=== PATIENT | male | born 1950 | race Caucasian/White ===

== ENCOUNTER → 2019-05-15 | Outpatient (REF) | payer MEDICARE ==
[2019-05-15 14:12] LABS: BASO # 0.1 10^3/uL (0.0-0.2); EOS # 0.9 10^3/uL (0.0-0.5); EOS % 10.6 % (0.0-3.0); HEMATOCRIT 34.3 % (42.0-52.0); HEMOGLOBIN 10.9 g/dl (13.5-17.5); LYMPH # 1.8 10^3/uL (1.5-5.0); LYMPH % 21.6 % (24.0-44.0); MEAN CORPUSCULAR HEMOGLOBIN 28.5 pg (27.0-33.0); MEAN CORPUSCULAR HGB CONC 31.8 g/dl (32.0-36.5); MEAN CORPUSCULAR VOLUME 89.6 fl (80.0-96.0); MONO # 0.9 10^3/uL (0.0-0.8); MONO % 10.4 % (0.0-5.0); NEUTROPHILS # 4.7 10^3/uL (1.5-8.5); NEUTROPHILS % 55.9 % (36.0-66.0); PLATELET COUNT, AUTOMATED 273 10^3/uL (150-450); RED BLOOD COUNT 3.83 10^6/uL (4.30-6.10); WHITE BLOOD COUNT 8.4 10^3/uL (4.0-10.0)
[2019-05-15 14:43] LABS: ERYTHROCYTE SEDIMENTATION RATE 85 mm/hr (0-20)
== END ==
LOC: M SFHCPLAZ 13:28
PROVIDERS: ATTEND Internal Medicine Infectious Disease
DX: I05.8 Other rheumatic mitral valve diseases (principal)
CPT/HCPCS: 36415; 85025; 85652; 86140; G0463

== ENCOUNTER → 2019-06-03 | Outpatient (CLI) | payer MEDICARE ==
[~2019-06-03] MED LIST: PROHANCE 279.3MG/ML 15ML VIAL (A9576) As Ordered ONE; PROHANCE 279.3MG/ML 5ML VIAL (A9576) As Ordered ONE
--- NOTE | 2019-06-03 17:23 | REP ---
INDICATION: Streptococcal infection. PROCEDURE: MR lumbar spine with and without contrast. COMPARISON STUDIES: No prior similar studies. FINDINGS: There is [id number] multilevel degenerative disc disease loss of disc height and disc desiccation seen diffusely throughout the lumbar spine. Degenerative change appears greater L4-5 level. There is degenerative disc disease at L4-5 and L5 S1 levels. On the sagittal T2-weighted images, ehbw-wt-pesdceby canal stenosis is seen at the levels of the disc at L3-4, L4-5 and to a lesser extent at L5-S1 levels. Conus ends normally at L1 level. On review of axial images, At L1-2 disc bulge with lrwq-uo-zlfgqfnm canal narrowing and mild bilateral foraminal narrowing At L2-3 disc bulge with mild canal narrowing and mild bilateral foraminal narrowing At L3-4 disc bulge with rnst-xu-zuoonmyd canal stenosis and darc-ix-ojcstjij bilateral foraminal narrowing At L4-5 global disc bulge with moderate canal stenosis and moderate bilateral foraminal narrowing At L5-S1 global disc bulge with moderate canal stenosis. Bilateral lateral recess narrowing and ijtueyou-th-vpdbab foraminal narrowing on the left and moderate on the right. With concern for infection, no definite epidural abscess or collection. However at the inferior L5 level on the right there is questionable soft tissue extension around the vertebral body and extension of the inflammation seen at the L4-5 disc level. Though this could represent degenerative change, early infection must be considered. Follow-up recommended. There is inflammation around the right facet joint into L4-5 level. IMPRESSION: 1. Degenerative changes as described. 2. No definite findings of osteomyelitis or diskitis, no evidence of epidural abscess or collection. 3. No limiting canal stenosis. Foraminal narrowing appears significant at L4-5 on the right and L5-S1 on the left. 4. No definite findings of osteomyelitis, diskitis, or epidural abscess. There is focal inflammation at the L4-5 level on the right at the endplates and extending into the right facet joint. A septic facet joint at L4-5 on the right may be considered. At the inferior L5 level on the right there is questionable soft tissue extension around the vertebral body and extension of the inflammation seen at the L4-5 disc level. Though this could represent degenerative inflammation, early infection should be considered. Follow-up recommended. Electronically Signed by Lewis Mckeon MD 06/03/2019 05:14 P
== END ==
LOC: M RAD 14:32
PROVIDERS: ATTEND Internal Medicine Infectious Disease
DX: A49.1 Streptococcal infection, unspecified site (principal); M51.36 Other intervertebral disc degeneration, lumbar region
CPT/HCPCS: 72158; 87071; A9576

== ENCOUNTER → 2019-06-09 | Outpatient (REF) | payer MEDICARE ==
[2019-06-09 16:24] LABS: BASO # 0.1 10^3/uL (0.0-0.2); BASO % 1.3 % (0.0-1.0); EOS # 0.4 10^3/uL (0.0-0.5); EOS % 6.1 % (0.0-3.0); HEMATOCRIT 39.9 % (42.0-52.0); HEMOGLOBIN 12.4 g/dl (13.5-17.5); LYMPH # 2.5 10^3/uL (1.5-5.0); LYMPH % 34.5 % (24.0-44.0); MEAN CORPUSCULAR HGB CONC 31.1 g/dl (32.0-36.5); MEAN CORPUSCULAR VOLUME 90.1 fl (80.0-96.0); MONO # 0.6 10^3/uL (0.0-0.8); MONO % 8.1 % (0.0-5.0); NEUTROPHILS # 3.6 10^3/uL (1.5-8.5); NEUTROPHILS % 49.3 % (36.0-66.0); PLATELET COUNT, AUTOMATED 289 10^3/uL (150-450); RED BLOOD COUNT 4.43 10^6/uL (4.30-6.10); WHITE BLOOD COUNT 7.2 10^3/uL (4.0-10.0)
[2019-06-09 16:50] LABS: ERYTHROCYTE SEDIMENTATION RATE 41 mm/hr (0-20)
== END ==
LOC: M SFHCPLAZ 12:47
PROVIDERS: ATTEND Internal Medicine Infectious Disease
DX: I05.8 Other rheumatic mitral valve diseases (principal)
CPT/HCPCS: 36415; 85025; 85652; 86140; G0463

== ENCOUNTER 2023-12-06 10:01 | Day surgery (SDC) | payer MEDICARE ==
[~2023-12-06] VITALS: Ht 182.9 cm; Wt 109.8 kg
[~2023-12-06 10:01] MED LIST changes: +ATROPINE SULFATE 1% OPHTH SOLN 2ML BTL OS SCH; +BREO1INH3; +CARV3.12; +CLOB0.0526; +CYCL-707; +DOXY100C3; +FINA5TAB2; +FLUO-365; +FLUT1BLS8; +FURO40TA2; +LAMO100T3; +LIDOCAINE 3.5 % 1ML OPHTH TOPICAL GEL OU ONE; +LORAPOW30; +OFLOXACIN 0.3 % (OCUFLOX) OPTH SOL 5ML OS ONE; +PANT40TA29; +PHENYLEPHRINE 10% OPHTH SOL 5ML OS PRN; +PHENYLEPHRINE 2.5% OPHTH SOL 2ML OS SCH; -PROHANCE 279.3MG/ML 15ML VIAL (A9576) As Ordered ONE; -PROHANCE 279.3MG/ML 5ML VIAL (A9576) As Ordered ONE; +ROSU5TAB40; +TAMS1CAP17; +TRAZ-252; +TROPICAMIDE 1% OPHTH SOLN 15ML OS SCH
[2023-12-06] MEDS ORDERED: MIDAZOLAM INJ 2MG/2ML VIAL As Ordered ONE (12:23)
[2023-12-06] MEDS ORDERED: fentaNYL 100 MCG/2 ML INJECTION As Ordered ONE (12:23)
[2023-12-06] MEDS: LIDOCAINE 1% SDV 5ML VIAL As Ordered ONE (12:35)
[2023-12-06] MEDS: BSS IRRIG/VANCO(10MG)/TOBRA(5MG)/EPINEPH(1:1000-0.5CC)500ML BAG-ORONLY As Ordered ONE (12:40)
[2023-12-06] MEDS: CEFUROXIME 1MG/0.1ML INTRACAMERAL INJ As Ordered ONE (12:44)
[2023-12-06 12:52] VITALS: BP 175/99; TEMP 96.7; O2SAT 96
== END 2023-12-06 13:10 | disposition home or self-care (01) ==
LOC: M SDC 10:01
PROVIDERS: ATTEND Ophthalmology
DX: H25.12 Age-related nuclear cataract, left eye (principal); G47.30 Sleep apnea, unspecified; I10 Essential (primary) hypertension; E78.00 Pure hypercholesterolemia, unspecified; M54.9 Dorsalgia, unspecified; J44.9 Chronic obstructive pulmonary disease, unspecified; M81.0 Age-related osteoporosis without current pathological fracture; M19.90 Unspecified osteoarthritis, unspecified site; N40.0 Benign prostatic hyperplasia without lower urinary tract symptoms; L30.9 Dermatitis, unspecified; Z87.891 Personal history of nicotine dependence; Z79.899 Other long term (current) drug therapy; Z79.51 Long term (current) use of inhaled steroids
CPT/HCPCS: 66984; J0697; J2250; J3010; V2632

== ENCOUNTER 2023-12-13 10:33 | Day surgery (SDC) | payer MEDICARE ==
[~2023-12-13] VITALS: Ht 182.9 cm; Wt 109.3 kg
[~2023-12-13 10:33] MED LIST changes: -ATROPINE SULFATE 1% OPHTH SOLN 2ML BTL OS SCH; -LIDOCAINE 3.5 % 1ML OPHTH TOPICAL GEL OU ONE; +MIDAZOLAM INJ 2MG/2ML VIAL As Ordered ONE; -OFLOXACIN 0.3 % (OCUFLOX) OPTH SOL 5ML OS ONE; +PHENYLEPHRINE 10% OPHTH SOL 5ML OD PRN; -PHENYLEPHRINE 10% OPHTH SOL 5ML OS PRN; -PHENYLEPHRINE 2.5% OPHTH SOL 2ML OS SCH; -TROPICAMIDE 1% OPHTH SOLN 15ML OS SCH; +fentaNYL 100 MCG/2 ML INJECTION As Ordered ONE
[2023-12-13] MEDS: LIDOCAINE 3.5 % 1ML OPHTH TOPICAL GEL OU ONE (11:10)
[2023-12-13] MEDS: ATROPINE SULFATE 1% OPHTH SOLN 2ML BTL OD SCH (11:10)
[2023-12-13] MEDS: OFLOXACIN 0.3 % (OCUFLOX) OPTH SOL 5ML OD ONE (11:10)
[2023-12-13] MEDS: PHENYLEPHRINE 2.5% OPHTH SOL 2ML OD SCH (11:10)
[2023-12-13] MEDS: TROPICAMIDE 1% OPHTH SOLN 15ML OD SCH (11:10)
[2023-12-13] MEDS: LIDOCAINE 1% SDV 5ML VIAL As Ordered ONE (11:55)
[2023-12-13] MEDS: CEFUROXIME 1MG/0.1ML INTRACAMERAL INJ As Ordered ONE (11:55)
[2023-12-13] MEDS: BSS IRRIG/VANCO(10MG)/TOBRA(5MG)/EPINEPH(1:1000-0.5CC)500ML BAG-ORONLY As Ordered ONE (11:55)
[2023-12-13 12:15] VITALS: BP 142/90; TEMP 97.6; O2SAT 98
== END 2023-12-13 12:30 | disposition home or self-care (01) ==
LOC: M SDC 10:33
PROVIDERS: ATTEND Ophthalmology
DX: H25.11 Age-related nuclear cataract, right eye (principal); I10 Essential (primary) hypertension; E78.00 Pure hypercholesterolemia, unspecified; J44.9 Chronic obstructive pulmonary disease, unspecified; G47.30 Sleep apnea, unspecified; N40.0 Benign prostatic hyperplasia without lower urinary tract symptoms; Z87.891 Personal history of nicotine dependence; Z90.89 Acquired absence of other organs; Z79.51 Long term (current) use of inhaled steroids; Z79.899 Other long term (current) drug therapy; K21.9 Gastro-esophageal reflux disease without esophagitis
CPT/HCPCS: 66984; J0697; J2250; J3010; V2632

== ENCOUNTER → 2024-12-15 | Outpatient (CLI) | payer MEDICARE ==
[~2024-12-15] MED LIST changes: -MIDAZOLAM INJ 2MG/2ML VIAL As Ordered ONE; -PHENYLEPHRINE 10% OPHTH SOL 5ML OD PRN; -ROSU5TAB40; +ROSU5TAB49; -fentaNYL 100 MCG/2 ML INJECTION As Ordered ONE
== END ==
LOC: M RAD 11:07
PROVIDERS: ATTEND Physician Assistant Medical
DX: R10.9 Unspecified abdominal pain (principal); K80.20 Calculus of gallbladder without cholecystitis without obstruction

== ENCOUNTER → 2024-12-18 | Outpatient (CLI) | payer MEDICARE | LOC: M RAD 13:27 | PROVIDERS: ATTEND Physician Assistant Medical | DX: Z12.2 Encounter for screening for malignant neoplasm of respiratory organs (principal); F17.211 Nicotine dependence, cigarettes, in remission; J98.11 Atelectasis; R91.1 Solitary pulmonary nodule; I25.10 Atherosclerotic heart disease of native coronary artery without angina pectoris; I70.0 Atherosclerosis of aorta ==